=== PATIENT | male | born 1945 | race Caucasian/White ===

== ENCOUNTER 2024-01-18 13:43 | Emergency (ER) | payer MEDICARE, SELFPAY ==
[~2024-01-18] VITALS: Ht 188 cm; Wt 118.8 kg
[~2024-01-18 13:43] MED LIST: ALFU10TA47 PO; ASPI-1265 PO; PANT-47 PO
[2024-01-18 16:00] LABS: BASOPHILS % (AUTO) 0.5 % (0-1); EOSINOPHILS % (AUTO) 0.6 % (0-6); HEMATOCRIT 47.3 % (42.0-52.0); HEMOGLOBIN 16.1 g/dl (14.0-17.9); LYMPHOCYTES # (AUTO) 1.1 X10'3 (1.1-4.8); LYMPHOCYTES % (AUTO) 16.4 % (21-51); MEAN CORPUSCULAR HEMOGLOBIN 33.3 PG (27.0-31.0); MEAN CORPUSCULAR VOLUME 97.9 FL (78-98); MEAN PLATELET VOLUME 8.3 FL (7.4-10.4); MONOCYTES # (AUTO) 0.4 X10'3 (0-0.9); MONOCYTES % (AUTO) 5.6 % (2-12); NEUTROPHILS # (AUTO) 5.1 X10'3 (1.8-7.7); NEUTROPHILS % (AUTO) 76.9 % (42-75); PLATELET COUNT 195 X10'3 (140-440); RED BLOOD COUNT 4.84 X10'6 (4.70-6.10); RED CELL DISTRIBUTION WIDTH 12.9 % (11.5-14.5); WHITE BLOOD COUNT 6.7 X10'3 (4.5-11.0)
[2024-01-18 16:04] LABS: BILIRUBIN,URINE NEGATIVE (Neg); CLARITY,URINE CLEAR (Clear); COLOR,URINE YELLOW (Yellow); GLUCOSE, URINE NEGATIVE (Neg); KETONES,URINE NEGATIVE (Neg); LEUKOCYTE ESTERASE ,URINE NEGATIVE (Neg); NITRITES, URINE NEGATIVE (Neg); OCCULT BLOOD,URINE NEGATIVE (Neg); PROTEIN,URINE NEGATIVE (Neg); UROBILINOGEN,URINE 0.2 E.U/dL (0.2-1.0)
[2024-01-18 16:05] LABS: UA COLLECTION TYPE CLN CATCH MIDSTREAM
[2024-01-18 16:10] LABS: ALANINE AMINOTRANSFERASE 56 U/L (12-78); ALBUMIN 4.2 G/DL (3.4-5.0); ALBUMIN/GLOBULIN RATIO 1.3 (1.1-1.5); ALKALINE PHOSPHATASE 88 IU/L (46-116); ANION GAP 10 (8-16); ASPARTATE AMINO TRANSFERASE 20 U/L (10-37); BILIRUBIN,TOTAL 0.7 MG/DL (0.1-1.0); BLOOD UREA NITROGEN 16 MG/DL (7-18); BUN/CREATININE RATIO 11.3 (10.0-20.0); CALCIUM 9.2 MG/DL (8.5-10.1); CHLORIDE 103 MMOL/L (99-107); CREATININE 1.41 MG/DL (0.60-1.10); GLUCOSE 111 MG/DL (70-104); POTASSIUM 4.1 MMOL/L (3.5-5.1); SODIUM 139 MMOL/L (135-145); TOTAL CARBON DIOXIDE 25.9 MMOL/L (24-32); TOTAL PROTEIN 7.5 G/DL (6.4-8.2); eCRCL 50 ML/MIN; eGFR 49 ML/MIN
[2024-01-18 16:14] LABS: BILIRUBIN,DIRECT 0.2 MG/DL (0-0.3); LIPASE 29 U/L (16-77)
[2024-01-18] MEDS ORDERED: iohexol 300mg/ml 100ml inj. ONE (16:17)
[2024-01-18 17:55] VITALS: BP 179/109; PULSE 81; RESP 16; TEMP 98.2; O2SAT 98
[2024-01-18] MEDS: LidoCAINE 2% Topical Jelly 11mL syringe (UROJET) TOP ONE (17:55)
== END 2024-01-18 17:59 | disposition home or self-care (01) ==
LOC: ER 13:44
DX: N40.0 Benign prostatic hyperplasia without lower urinary tract symptoms (principal); R33.9 Retention of urine, unspecified; Z88.0 Allergy status to penicillin; Z79.899 Other long term (current) drug therapy; Z79.82 Long term (current) use of aspirin
CPT/HCPCS: 36415; 51702; 71045; 74177; 80048; 80076; 81003; 83690; 84484; 85025; 93005; 99285; A4314; A4340; A4358; Q9967

== ENCOUNTER 2024-01-31 11:24 | Emergency (ER) | payer MEDICARE ==
[~2024-01-31] VITALS: Ht 188 cm; Wt 113.6 kg
[2024-01-31 12:56] LABS: BILIRUBIN,URINE NEGATIVE (Neg); CLARITY,URINE SLIGHTLY CLOUDY (Clear); COLOR,URINE YELLOW (Yellow); GLUCOSE, URINE NEGATIVE (Neg); KETONES,URINE TRACE mg/dl (Neg); LEUKOCYTE ESTERASE ,URINE LARGE (Neg); NITRITES, URINE POSITIVE (Neg); OCCULT BLOOD,URINE LARGE (Neg); PH,URINE 6.5 (4.8-8.0); PROTEIN,URINE 30 mg/dl (Neg); UROBILINOGEN,URINE 0.2 E.U/dL (0.2-1.0)
[2024-01-31 13:02] LABS: UA COLLECTION TYPE OTHER
[2024-01-31 13:06] LABS: RBC,URINE 20-50 /HPF (0-2); WBC,URINE TNTC /HPF (0-4)
[2024-01-31 13:09] LABS: MUCUS STRANDS FEW /LPF (Neg); SQUAMOUS EPITHELIAL CELL,UR NONE SEEN /LPF (FEW)
[2024-01-31 13:10] LABS: WBC CLUMPS,URINE FEW /HPF (NEGATIVE)
[2024-01-31 13:12] LABS: BACTERIA,URINE 3+ /HPF (Neg)
[2024-01-31] MEDS ORDERED: SULF1TAB49 PO (13:15)
[2024-01-31 13:23] VITALS: BP 148/80; PULSE 86; RESP 18; TEMP 97.9; O2SAT 95
== END 2024-01-31 13:24 | disposition home or self-care (01) ==
LOC: ER 11:25
DX: N39.0 Urinary tract infection, site not specified (principal); Z88.0 Allergy status to penicillin; Z79.899 Other long term (current) drug therapy; Z79.82 Long term (current) use of aspirin
CPT/HCPCS: 81001; 87077; 87088; 87186; 99283; A4314

== ENCOUNTER 2024-02-29 12:04 | Emergency (ER) | payer MEDICARE ==
[~2024-02-29] VITALS: Ht 188 cm; Wt 114.6 kg
[2024-02-29] MEDS ORDERED: LIDO35.4 TOP (13:22)
[2024-02-29] MEDS ORDERED: HYDR-3973 PO (13:22)
--- NOTE | 2024-02-29 13:29 | NUR ---
Clarified allergy to [place] with patient, per patient the medication causes him to "itch a little, but I can take it with Benadryl." Dr. Randolph notified and orders placed by .
[2024-02-29] MEDS: diphenhydrAMINE 25mg capsule PO ONE (13:41)
[2024-02-29] MEDS: HYDROcodone/acetaminophen 5mg/325mg tablet PO ONE (13:41)
[2024-02-29] MEDS: LidoCAINE 2% Topical Jelly 11mL syringe (UROJET) TOP ONE (13:41)
[2024-02-29 13:48] VITALS: BP 138/74; PULSE 84; RESP 14; TEMP 97; O2SAT 94
== END 2024-02-29 13:52 | disposition home or self-care (01) ==
LOC: ER 12:04
DX: N48.89 Other specified disorders of penis (principal); Z88.0 Allergy status to penicillin; Z88.8 Allergy status to other drugs, medicaments and biological substances; Z79.899 Other long term (current) drug therapy; Z79.82 Long term (current) use of aspirin
CPT/HCPCS: 99284; Q0163